=== PATIENT | male | born 1960 | race Caucasian/White ===

== ENCOUNTER → 2017-04-15 08:05 | Outpatient (CLI) | payer OTHER, SELFPAY ==
[2017-04-15 09:52] LABS: Absolute Lymphocyte Count 1.18 X10^3/ul (0.83-4.51); Absolute Neutrophil Count 3.6 X10^3/uL (2.0-7.7); Basophil# 0.01 X10^3/uL; Basophil% 0.2 % (0-1); Eosinophil# 0.03 X10^3/uL; Eosinophils% 0.6 % (0-5); Hematocrit 46.9 % (40-54); Hemoglobin 15.9 g/dl (13.0-16.5); Lymphocyte # 1.18 X10^3/ul (4.0); Lymphocyte % 21.8 % (19-41); Mean Corp Hgb Conc 33.9 g/gl (32-36); Mean Corpuscular Hgb 31.2 pg (27.0-32.0); Mean Corpuscular Volume 92.1 fL (80-94); Mean Platelet Vol. 9.8 fl (6.2-12.0); Monocyte# 0.56 X10^3/uL; Monocyte% 10.4 % (0-10); Neutrophil # 3.62 X10^3/uL (2.7-7.7); Neutrophil % 66.8 % (47-70); Platelet Count 167 K/mm3 (150-450); RBC Distribution Width CV 12.5 % (11.6-14.6); RBC Distribution Width SD 41.8 fl (35.1-43.9); Red Blood Count 5.09 M/mm3 (4.6-6.2); White Blood Count 5.4 K/mm3 (4.4-11.0)
[2017-04-15 09:53] LABS: POSITIVE COUNT NO; POSITIVE DIFFERENTIAL NO; POSITIVE MORPHOLOGY NO
[2017-04-15 10:04] LABS: Erythrocyte Sedimentation Rate 10 mm/hr (0-20)
[2017-04-15 10:11] LABS: ALB/GLOB Ratio 1.1 RATIO (0.9-2.4); AST(SGOT) 15 U/L (15-37); Alanine Aminotransfer ALT/SGPT 27 U/L (16-61); Alkaline Phosphatase 61 U/L (45-117); Anion Gap 10 (5-15); BUN 18 mg/dL (7-18); BUN/Creat Ratio 18.3 RATIO (10-20); Calcium,Total 8.4 mg/dL (8.5-10.1); Chloride 107 mmol/L (98-107); Creatinine, Serum 0.98 mg/dL (0.70-1.30); EST Glomerular Filtration Rate 83 mL/min (>60); Est Glom Filt Rate - Afr Amer 101 mL/min (>60); Globulin 3.6 g/dL (2.2-4.2); Glucose 93 mg/dL (70-110); Potassium 3.8 mmol/L (3.5-5.1); Protein, Total 7.6 g/dL (6.4-8.2); Sodium Level 141 mmol/L (136-145); Thyroid Stim Hormone (TSH) 2.68 uIU/mL (0.358-3.74)
== END ==
PROVIDERS: Visit Provider Family Medicine
DX: R53.81 Other malaise (principal); R53.83 Other fatigue
CPT/HCPCS: 36415; 80053; 84443; 85025; 85652

== ENCOUNTER → 2017-04-23 11:18 | Outpatient (CLI) | payer OTHER, SELFPAY ==
[2017-04-23 15:48] LABS: Absolute Lymphocyte Count 1.47 X10^3/ul (0.83-4.51); Absolute Neutrophil Count 6.4 X10^3/uL (2.0-7.7); Basophil# 0.05 X10^3/uL; Basophil% 0.6 % (0-1); Eosinophil# 0.03 X10^3/uL; Eosinophils% 0.3 % (0-5); Hematocrit 46.2 % (40-54); Hemoglobin 15.5 g/dl (13.0-16.5); Lymphocyte # 1.47 X10^3/ul (4.0); Lymphocyte % 16.9 % (19-41); Mean Corp Hgb Conc 33.5 g/gl (32-36); Mean Corpuscular Hgb 31.4 pg (27.0-32.0); Mean Corpuscular Volume 93.5 fL (80-94); Mean Platelet Vol. 9.8 fl (6.2-12.0); Monocyte# 0.72 X10^3/uL; Monocyte% 8.3 % (0-10); Neutrophil # 6.41 X10^3/uL (2.7-7.7); Neutrophil % 73.8 % (47-70); POSITIVE COUNT NO; POSITIVE DIFFERENTIAL NO; POSITIVE MORPHOLOGY NO; Platelet Count 239 K/mm3 (150-450); RBC Distribution Width CV 13.2 % (11.6-14.6); RBC Distribution Width SD 44.9 fl (35.1-43.9); Red Blood Count 4.94 M/mm3 (4.6-6.2); White Blood Count 8.7 K/mm3 (4.4-11.0)
[2017-04-23 16:14] LABS: ALB/GLOB Ratio 1.1 RATIO (0.9-2.4); AST(SGOT) 17 U/L (15-37); Alanine Aminotransfer ALT/SGPT 32 U/L (16-61); Alkaline Phosphatase 61 U/L (45-117); Anion Gap 7 (5-15); BUN 13 mg/dL (7-18); BUN/Creat Ratio 13.6 RATIO (10-20); Calcium,Total 8.8 mg/dL (8.5-10.1); Chloride 109 mmol/L (98-107); Creatinine, Serum 0.96 mg/dL (0.70-1.30); EST Glomerular Filtration Rate 86 mL/min (>60); Est Glom Filt Rate - Afr Amer 104 mL/min (>60); Globulin 3.6 g/dL (2.2-4.2); Glucose 87 mg/dL (74-106); Potassium 3.6 mmol/L (3.5-5.1); Protein, Total 7.6 g/dL (6.4-8.2); Sodium Level 143 mmol/L (136-145); Thyroid Stim Hormone (TSH) 1.39 uIU/mL (0.358-3.74)
== END ==
PROVIDERS: Family Provider Family Medicine; PCP Family Medicine; Visit Provider Family Medicine
DX: R19.7 Diarrhea, unspecified (principal)
CPT/HCPCS: 36415; 80053; 84443; 85025; 87177; 87209; 87493

== ENCOUNTER → 2017-05-04 10:40 | Outpatient (CLI) | payer OTHER, SELFPAY ==
--- NOTE | 2017-05-04 10:43 | ECHOD_ITS ---
Reason For Study: DYSPNEA Procedure This was a 2D Doppler, Color Flow transthoracic echocardiogram. The exam was of adequate technical quality. Exam performed in department. Left Ventricle Normal LV size. Left ventricular systolic function is normal. The estimated ejection fraction is 55 %. Transmitral doppler flow suggestive of impaired relaxation of left ventricle. No regional wall motion abnormalities noted. Right Ventricle Normal RV size. Normal systolic function. Atria Normal left atrium. Normal right atrium. No doppler evidence for ASD. Mitral Valve There is no mitral annular calcification. Normal mitral valve. Trivial mitral valve insufficiency. Tricuspid Valve Normal tricuspid valve. Trivial tricuspid valve insufficiency. Aortic Valve Trisinus/trileaflet aortic valve. Normal aortic valve. Pulmonic Valve The pulmonic valve is not well visualized. Trivial pulmonic valve insufficiency. Great Vessels Normal sized aortic root. Pericardium/Pleural No pericardial effusion. MMode/2D Measurements & Calculations LVIDd: 4.7 cm IVSd: 1.0 cm Ao root diam: 2.6 cm LVIDs: 3.1 cm LVPWd: 1.2 cm LA dimension: 3.8 cm RVDd: 4.2 cm FS: 34.8 % LAV(MOD-bp): 48.0 ml LA A4 area: 15.9 cm2 RA A4 area: 13.2 cm2 LAV(MOD-bp) Indexed: 20.7 ml/m2 LAV(MOD-sp2): 61.8 ml LAV(MOD-sp4): 38.5 ml Doppler Measurements & Calculations MV E max tarah: 69.9 cm/sec Ao V2 max: 151.1 cm/sec LV V1 max: 116.2 cm/sec MV A max tarah: 80.5 cm/sec Ao max P.1 mmHg LV V1 max P.4 mmHg MV E/A: 0.87 PA V2 max: 78.8 cm/sec Interpretation Summary Left ventricular systolic function is normal. The estimated ejection fraction is 55 %. Trivial mitral valve insufficiency. Trivial tricuspid valve insufficiency. Trivial pulmonic valve insufficiency. Transmitral doppler flow suggestive of impaired relaxation of left ventricle Ordering Physician: Ilsa Branham Referring Physician: Ilsa Branham Performed By: Comfort Flynn, EDUIN, RVT
== END ==
PROVIDERS: Family Provider Family Medicine; PCP Family Medicine; Visit Provider Family Medicine
DX: R06.09 Other forms of dyspnea (principal)
CPT/HCPCS: 93306

== ENCOUNTER 2017-09-20 08:08 | Emergency (ER) | payer OTHER, SELFPAY ==
[2017-09-20 08:10] VITALS: BP 156/89; PULSE 60; RESP 18; TEMP 36.9; O2SAT 99; BMI 33.3
--- NOTE | 2017-09-20 08:26 | CT_ITS ---
STUDY: CT ABDOMEN AND PELVIS WITHOUT CONTRAST REASON FOR EXAM: Male, 56 years old. Worsening right flank pain. RADIATION DOSAGE (If Supplied By Facility): CTDIvol = ( 18.87 ) mGy, DLP = ( 1008.95 ) mGycm TECHNIQUE: Transaxial images were obtained from the dome of the diaphragm to the symphysis pubis without oral contrast, and without intravenous contrast. Sagittal and coronal images were reconstructed. Individualized dose optimization techniques were used for this CT. COMPARISON: Comparison is made with prior study dated March 14, 2012. FINDINGS: Stable mild increased linear markings in the lingular segment of the left upper lobe suggestive of linear scarring. The visualized portions of the heart are within normal limits. There is decreased attenuation of the liver consistent with steatosis. Normal gallbladder and extrahepatic biliary system. Normal spleen. Normal pancreas. Normal bilateral adrenal glands. There is evidence of right perinephric stranding. There is engorgement of the right kidney. There is a 3.7 cm x 3.2 cm cyst in the posterior medial portion of the kidney. There is evidence of mild degree of right hydronephrosis and right hydroureter due to a 6.1 mm partially fragmented calculus at the right ureterovesical junction. Tiny nonobstructive left intrarenal calculi. Small cyst in the lower pole of the left kidney. Normal visualized stomach. Normal small intestine. There are multiple colonic diverticula consistent with diverticulosis. The appendix is visualized and appears normal. Normal abdominal aorta. Normal inferior vena cava. Normal retroperitoneum. Normal urinary bladder. There is a small umbilical hernia containing fat. Disc space narrowing and disc degeneration at the L2-L3 level. CT/Abdomen/Pelvis without Cont IMPRESSION: 6.1 mm partially fragmented calculus at the right ureterovesical junction causing mild degree of right hydronephrosis and right hydroureter. Right renal cyst. Small nonobstructive left intrarenal calculi. Small left renal cyst. Fatty infiltration of the liver. Electronically Signed: Vamsi Jauregui MD at 9:33 EDT Tel [phone], Service support ,
--- NOTE | 2017-09-20 08:29 | ED.VISSUMM ---
- ER Visit Summary Date of Service: 09/20/17 Chief Complaint: Right flank pain History of Present Illness: The patient is a 56 M who presents with right flank pain that began this morning. Patient describes pain as sharp, throbbing, and stabbing. She states the pain began suddenly. Patient states the pain radiates to his right lower abdomen. Patient states the pain improves with sitting in a reclined position. Patient does admit to some abdominal pressure but denies any pain. Patient admits to some nausea but denies any vomiting. Patient admits to some dark brown urine but denies any maura hematuria. Physical Examination: Vital signs are stable. Patient is afebrile. Patient is in no acute distress. Oral mucosa is pink and moist. Neck is supple. There is no JVD noted. Heart was regular rate and rhythm. Lungs are clear and equal bilaterally. There is good respiratory effort noted. Abdomen is soft. There is some right lower quadrant and right CVA tenderness. There is no rebound or guarding noted. Cranial nerves II through XII are intact. There are no focal motor or sensory deficits noted. The remaining physical exam is within normal limits. Test Results: CBC, basic metabolic profile, and urinalysis were obtained and were essentially within normal limits. CT scan of the abdomen and pelvis shows a 6.1 mm right ureteral calculus at the ureterovesicular junction. There is some hydronephrosis and hydroureter noted. Emergency Department Course and Treatment: Patient was given IV fluids and Toradol here. Patient states his pain has resolved. Patient was given prescriptions for Flomax and Naprosyn. Patient was instructed to follow-up with his primary care physician in 5-7 days. Patient understood and was agreeable with the plan. All questions were answered. Disposition: Discharged home Impression: Right ureteral lithiasis This note was generated with Alle[employer] dictation software. It may contain incorrect words, spelling, and punctuation that were not noted in review of the chart prior to signing ED Disposition - Plan for ED Patient: Disposition: Home or Assisted Living Chief Complaint: Flank Pain Diagnosis: Right distal ureteral calculus Instructions: ED Stone Renal W Colic Prescriptions: Naproxen [Naprosyn] 500 mg PO BID PRN #20 tab Tamsulosin HCl [Flomax] 0.4 mg PO DAILY #7 cap Referrals: Ilsa Branham MD [Primary Care Provider] -
[2017-09-20] MEDS: 0.9% Normal Saline 1,000 ML 1000 ML IV (08:33)
[2017-09-20] MEDS: Ketorolac 30 MG/ML Syringe IV (08:33)
[2017-09-20 08:35] LABS: Absolute Lymphocyte Count 1.61 X10^3/ul (0.83-4.51); Absolute Neutrophil Count 2.4 X10^3/uL (2.0-7.7); Basophil# 0.02 X10^3/uL; Basophil% 0.5 % (0-1); Eosinophil# 0.05 X10^3/uL; Eosinophils% 1.1 % (0-5); Hematocrit 47.1 % (40-54); Hemoglobin 16.8 g/dl (13.0-16.5); Lymphocyte # 1.61 X10^3/ul (4.0); Lymphocyte % 36.4 % (19-41); Mean Corp Hgb Conc 35.7 g/gl (32-36); Mean Corpuscular Hgb 32.1 pg (27.0-32.0); Mean Corpuscular Volume 90.1 fL (80-94); Mean Platelet Vol. 9.4 fl (6.2-12.0); Monocyte# 0.36 X10^3/uL; Monocyte% 8.1 % (0-10); Neutrophil # 2.37 X10^3/uL (2.7-7.7); Neutrophil % 53.7 % (47-70); POSITIVE COUNT NO; POSITIVE DIFFERENTIAL NO; POSITIVE MORPHOLOGY NO; Platelet Count 160 K/mm3 (150-450); RBC Distribution Width CV 11.9 % (11.6-14.6); RBC Distribution Width SD 39.4 fl (35.1-43.9); Red Blood Count 5.23 M/mm3 (4.6-6.2); White Blood Count 4.4 K/mm3 (4.4-11.0)
[2017-09-20 08:45] LABS: Anion Gap 9 (5-15); BUN 21 mg/dL (7-18); BUN/Creat Ratio 17.9 RATIO (10-20); Chloride 105 mmol/L (98-107); Creatinine, Serum 1.17 mg/dL (0.70-1.30); EST Glomerular Filtration Rate 68 mL/min (>60); Est Glom Filt Rate - Afr Amer 82 mL/min (>60); Estimated Creatinine Clearance 78.72 ml/min; Glucose 141 mg/dL (74-106); Potassium 4.1 mmol/L (3.5-5.1); Sodium Level 142 mmol/L (136-145)
[2017-09-20 09:28] LABS: Bacteria 0 SEEN /hpf (None Seen); Mucous, Urine 0 SEEN /hpf (<or=2+); White Blood Cells 0 SEEN /hpf (0-5)
[2017-09-20 09:34] LABS: Color, Urine Yellow (Yellow); Glucose, Dipstick Normal (Normal); Ketone-Dipstick Negative (Negative); Leukocyte Esterase-Dipstick Negative /ul (Negative); Nitrite-Dipstick Negative (Negative); Occult Blood-Urine 250 /ul (Negative); Protein-Dipstick Negative (Negative); Specific Gravity, Urine 1.015 (1.002-1.030); Urine Bilirubin Dipstick Negative (Negative); Urine Clarity Clear (Clear); Urine Urobilinogen Normal (Normal)
[2017-09-20 09:40] LABS: Red Blood Cells-Urine 0-5 SEEN /hpf (0-5); Squamous Epithelial Cells - UA 0-5 SEEN /hpf (0-5)
[2017-09-20 10:18] VITALS: BP 142/71; PULSE 62; RESP 16; O2SAT 99
== END 2017-09-20 10:20 | disposition home or self-care (01) ==
PROVIDERS: Emergency Provider Emergency Medicine; Family Provider Family Medicine; PCP Family Medicine
DX: N13.2 Hydronephrosis with renal and ureteral calculous obstruction (principal); G40.909 Epilepsy, unspecified, not intractable, without status epilepticus; Z79.899 Other long term (current) drug therapy
CPT/HCPCS: 74176; 80048; 81001; 85025; 96361; 96374; 99283; J7030; A4216

== ENCOUNTER → 2017-09-29 07:56 | Outpatient (CLI) | payer OTHER, SELFPAY ==
--- NOTE | 2017-09-29 08:04 | US_ITS ---
STUDY: RENAL ULTRASOUND - COMPLETE REASON FOR EXAM: Male, 56 years old. History of kidney stones. Patient relates history of passing kidney stone last week. TECHNIQUE: Ultrasound evaluation of the kidneys was performed with real-time and static escalera-scale imaging. COMPARISON: CT of the abdomen and pelvis, September 20, 2017. FINDINGS: RIGHT KIDNEY: Normal location of the right kidney, which is normal in size. The right kidney measures 12.5 cm. There is a normal cortex of the right kidney. The renal cortex measures 2.2 cm. Is a 3.6 x 2.9 x 3.9 cm exophytic cyst off the posterior upper pole. There are no right renal calculi. There is mild hydronephrosis of the right kidney. DISTAL RIGHT URETER: There is non-visualization of the distal right ureter. There is no demonstrated right ureterovesical junction calculus. There is a visualized right ureteral jet. LEFT KIDNEY: Normal location of the left kidney, which is mildly enlarged in size. The left kidney measures 13.0 cm. There is a normal cortex of the left kidney. The renal cortex measures 1.7 cm. There is a 1.7 x 1.1 x 0.9 cm cyst in the lower pole. There is a small 3 mm echogenic focus in the lower pole which correlates with the renal calculus seen on CT. Is a second echogenic focus in the mid kidney. No corresponding renal calculus is seen on the CT. There is no left hydronephrosis. DISTAL LEFT URETER: There is non-visualization of the distal left ureter. There is no demonstrated left ureterovesical junction calculus. There is a visualized left ureteral jet. BLADDER: The distended urinary bladder has a volume of 317 ml. The empty urinary bladder has a volume of 8 ml. There is a normal wall thickness of the distended urinary bladder. There is no demonstrated mass within the urinary bladder. There are no demonstrated bladder calculi. US/Kidney and Bladder IMPRESSION: 1. Bilateral renal cysts which correlate with the CT findings. 2. Small lower pole calculus seen in the left kidney. 3. Mild right hydronephrosis. Electronically Signed: Justin Sharma DO at 23:26 EDT Tel [phone], Service support ,
== END ==
PROVIDERS: Family Provider Family Medicine; PCP Family Medicine; Visit Provider Family Medicine
DX: N13.2 Hydronephrosis with renal and ureteral calculous obstruction (principal); N28.1 Cyst of kidney, acquired; Z87.442 Personal history of urinary calculi
CPT/HCPCS: 76770

== ENCOUNTER → 2018-03-07 10:25 | Outpatient (CLI) | payer OTHER, SELFPAY ==
[2018-03-07 12:38] LABS: Hemoglobin A1c 6.1 % (4.2-6.3)
[2018-03-07 12:47] LABS: Anion Gap 8 (5-15); BUN 19 mg/dL (7-18); BUN/Creat Ratio 20.2 RATIO (10-20); Calcium,Total 8.7 mg/dL (8.5-10.1); Chloride 104 mmol/L (98-107); Cholesterol 181 mg/dL (200); Creatinine, Serum 0.94 mg/dL (0.70-1.30); EST Glomerular Filtration Rate 88 mL/min (>60); Est Glom Filt Rate - Afr Amer 106 mL/min (>60); Glucose 103 mg/dL (74-106); High Density Lipoprotein 32 mg/dL; Sodium Level 140 mmol/L (136-145); Triglycerides 152 mg/dL; Very Low Density Lipoprotein 30 mg/dL (5-40)
[2018-03-07 13:02] LABS: Valproic Acid (Depakene) Level 50 ug/mL (50-100)
[2018-03-07 13:14] LABS: Vitamin D,25 Hydroxy 22.9 ng/mL (29.95-100.01)
== END ==
PROVIDERS: Family Provider Family Medicine; PCP Family Medicine; Visit Provider Family Medicine
DX: Z00.00 Encounter for general adult medical examination without abnormal findings (principal); E55.9 Vitamin D deficiency, unspecified; G40.909 Epilepsy, unspecified, not intractable, without status epilepticus; R73.02 Impaired glucose tolerance (oral)
CPT/HCPCS: 36415; 80048; 80061; 80164; 82306; 83036

== ENCOUNTER 2018-03-21 17:33 | Emergency (ER) | payer OTHER, SELFPAY ==
[2018-03-21 17:34] VITALS: BP 141/89; PULSE 91; RESP 16; TEMP 37; O2SAT 97; BMI 34.8
[2018-03-21 18:17] LABS: Absolute Lymphocyte Count 1.65 X10^3/ul (0.83-4.51); Absolute Neutrophil Count 6.2 X10^3/uL (2.0-7.7); Basophil# 0.02 X10^3/uL; Basophil% 0.2 % (0-1); Eosinophil# 0.02 X10^3/uL; Eosinophils% 0.2 % (0-5); Hematocrit 46.2 % (40-54); Hemoglobin 15.7 g/dl (13.0-16.5); Lymphocyte # 1.65 X10^3/ul (4.0); Lymphocyte % 19.5 % (19-41); Mean Corpuscular Volume 91.3 fL (80-94); Mean Platelet Vol. 9.8 fl (6.2-12.0); Monocyte% 7.1 % (0-10); Neutrophil # 6.16 X10^3/uL (2.7-7.7); Neutrophil % 72.9 % (47-70); Platelet Count 175 K/mm3 (150-450); RBC Distribution Width CV 12.4 % (11.6-14.6); RBC Distribution Width SD 40.7 fl (35.1-43.9); Red Blood Count 5.06 M/mm3 (4.6-6.2); White Blood Count 8.5 K/mm3 (4.4-11.0)
[2018-03-21 18:23] LABS: POSITIVE COUNT NO; POSITIVE DIFFERENTIAL NO; POSITIVE MORPHOLOGY NO
[2018-03-21 18:47] LABS: Anion Gap 9 (5-15); BUN 14 mg/dL (7-18); BUN/Creat Ratio 13.5 RATIO (10-20); Calcium,Total 8.7 mg/dL (8.5-10.1); Chloride 106 mmol/L (98-107); Creatinine, Serum 1.04 mg/dL (0.70-1.30); EST Glomerular Filtration Rate 78 mL/min (>60); Est Glom Filt Rate - Afr Amer 94 mL/min (>60); Glucose 109 mg/dL (74-106); Potassium 4.2 mmol/L (3.5-5.1); Sodium Level 137 mmol/L (136-145)
--- NOTE | 2018-03-21 20:16 | CT_ITS ---
STUDY: CT ABDOMEN AND PELVIS WITH CONTRAST REASON FOR EXAM: Male, 57 years old. Lower abdominal pain. History of diverticulitis. RADIATION DOSAGE (If Supplied By Facility): CTDIvol = ( 16.99 ) mGy, DLP = ( 1405.68 ) mGycm TECHNIQUE: Transaxial images were obtained from the dome of the diaphragm to the symphysis pubis without oral contrast. 100 ml of Isovue 300 contrast was administered. Sagittal and coronal images were reconstructed. Individualized dose optimization techniques were used for this CT. COMPARISON: September 20, 2017 FINDINGS: The visualized lung bases are unremarkable. The visualized portions of the heart are within normal limits. There is decreased attenuation of the liver consistent with steatosis. Normal gallbladder and extrahepatic biliary system. There is a benign calcified granuloma of the spleen. Normal pancreas. Normal bilateral adrenal glands. There are bilateral renal cysts. There is a nonobstructing 3.6 mm left renal calculus. Normal visualized stomach. Normal small intestine. There is diverticulosis, with thickening of the sigmoid colon wall, and pericolonic inflammation changes consistent with acute diverticulitis. The appendix is visualized and appears normal. Normal abdominal aorta. Normal inferior vena cava. Normal retroperitoneum. Normal urinary bladder. There is a small umbilical hernia containing fat. There are diffuse degenerative changes of the visualized lumbar spine. CT/Abdomen/Pelvis W IV Cont ONLY IMPRESSION: Acute diverticulitis of the sigmoid colon. Fatty infiltration of the liver. Degenerative changes. Nonobstructing 3.6 mm left renal calculus. Electronically Signed: Dagmar Carlin MD at 20:53 EST Tel , Service support ,
[2018-03-21 20:17] VITALS: BP 144/104; PULSE 77; RESP 17; O2SAT 98
[2018-03-21 20:25] VITALS: BP 144/104; PULSE 77; RESP 14; TEMP 37; O2SAT 98
--- NOTE | 2018-03-21 21:03 | ED.VISSUMM ---
- ER Visit Summary Date of Service: 03/21/18 Chief Complaint: Abdominal pain blood in stool History of Present Illness: The patient is a 57 M who states that today he is developed abdominal pain in the suprapubic left lower quadrant. He also notes some blood with the stool. He has been constipated. He has had a history of diverticulitis one time in the past who presented to very similar. That time he did not have diverticular abscess or perforation was treated with antibiotics successfully. He had a negative colonoscopy he tells me afterwards. Physical Examination: Afebrile vital signs are stable Gen: Well-nourished well-developed Head: Normocephalic atraumatic Eyes: Perrl EOMI ENT: TMs clear no rhinorrhea moist mucous membranes Neck: Supple no lymphadenopathy no JVD nontender CVS: Regular rate rhythm no murmurs normal S1-S2 Respiratory: No distress clear to auscultation bilaterally chest nontender Abdomen: Soft tenderness with guarding but without rebound the suprapubic and the left lower quadrant nondistended normal bowel sounds no masses Back: Nontender Extremity: Nontender no edema Skin: Normal color no rash Neuro: alert orientated ?3 CN II-XII intact normal strength sensation reflexes gait cerebellar Psych: Normal affect normal mood Test Results: CBC chemistries were negative. CT the abdomen pelvis demonstrated significant sigmoid diverticulitis without perforation or abscess formation Emergency Department Course and Treatment: Patient is allergic to penicillin as well as Flagyl. We will place him on Avelox monotherapy. He has declined pain medication. Early follow-up and return instructions were given and he notes understanding. Impression: 1. Acute sigmoid diverticulitis This note was generated with [employer] dictation software. It may contain incorrect words, spelling, and punctuation that were not noted in review of the chart prior to signing ED Disposition - Plan for ED Patient: Disposition: Home or Assisted Living Chief Complaint: Abd Pain Instructions: ED Diverticulitis Prescriptions: Ondansetron [Zofran Odt] 4 mg PO Q6H PRN PRN #10 tab PRN Reason: Nausea Moxifloxacin HCl [Avelox] 400 mg PO DAILY #7 tab Referrals: Ilsa Branham MD [Primary Care Provider] - 5-7 Days
[2018-03-21 21:31] VITALS: BP 160/96; PULSE 81; PULSE 82; RESP 16; TEMP 36.8; O2SAT 97
== END 2018-03-21 21:32 | disposition home or self-care (01) ==
PROVIDERS: Emergency Provider Emergency Medicine; Family Provider Family Medicine; PCP Family Medicine
DX: K57.32 Diverticulitis of large intestine without perforation or abscess without bleeding (principal)
CPT/HCPCS: 74177; 80048; 85025; 99283; Q9967; A4216

== ENCOUNTER 2018-11-15 20:57 | Emergency (ER) | payer OTHER, SELFPAY ==
[2018-11-15 20:57] VITALS: BP 165/83; PULSE 56; RESP 16; TEMP 36.8; O2SAT 98; BMI 33.5
[2018-11-15 21:11] LABS: Bacteria 0 SEEN /hpf (None Seen); Squamous Epithelial Cells - UA 0 SEEN /hpf (0-5); White Blood Cells 0 SEEN /hpf (0-5)
[2018-11-15 21:16] LABS: Color, Urine Yellow (Yellow); Glucose, Dipstick Normal (Normal); Ketone-Dipstick 5 mg/dl (Negative); Leukocyte Esterase-Dipstick Negative /ul (Negative); Nitrite-Dipstick Negative (Negative); Occult Blood-Urine 250 /ul (Negative); Protein-Dipstick 30 mg/dl (Negative); Specific Gravity, Urine 1.025 (1.002-1.030); Urine Bilirubin Dipstick Negative (Negative); Urine Clarity Sl. Cloudy (Clear); Urine Urobilinogen Normal (Normal)
[2018-11-15 21:24] LABS: Mucous, Urine 2+ /hpf (<or=2+); Red Blood Cells-Urine 10-25 SEEN /hpf (0-5)
--- NOTE | 2018-11-15 22:06 | CT_ITS ---
HISTORY:LT FLANK PAIN,HEMATURIAHX:DIABETES,DIVERTICULITIS,KIDNEY STONES,SEIZURES TECHNIQUE:CT Abdomen And Pelvis W/O Contrast Axial CT images were obtained of the abdomen and pelvis without oral or IV contrast. Multiplanar rectructions were also obtained. A radiation dose optimization technique was used for this scan. # of images including paperwork:[id number] COMPARISON: March 21, 2018 FINDINGS: LUNG BASES: Atelectasis or scarring in the anterior aspect of the left lower lobe. This was seen on the prior study and is similar in their is atelectasis seen posteriorly in the left lower lobe LIVER T BILIARY TRACT: Diffuse hepatic steatosis. No discrete masses. This was seen on the prior study GALLBLADDER:No cholelithiasis PANCREAS: Unremarkable. SPLEEN: Unremarkable for an unenhanced study ADRENAL GLANDS: Unremarkable. KIDNEYS/URETERS:Minimal perinephric stranding is seen surrounding the right kidney. This may be secondary to prior infection or inflammation. This was present on the prior study. Right renal cyst was seen on the prior study. There is increased fat stranding surrounding the left kidney. There is mild to moderate left-sided hydronephrosis and hydroureter. This involves the proximal ureter. A 2.2 mm stone is seen within the proximal left ureter seen on axial image 104 series 2 and on coronal image 66 series 601. The ureter beyond this is not distended. BLADDER: Poorly distended STOMACH, SMALL AND LARGE BOWEL: Stomach is unremarkable as is the small bowel No mechanical obstruction Diverticulosis without evidence of diverticulitis APPENDIX: No appendicitis. ASCITES: Unremarkable. FREE AIR: Unremarkable. PELVIS: Unremarkable. AORTA: Unremarkable. LYMPH NODES: Unremarkable. OSSEOUS STRUCTURES: No acute osseous abnormality there is spina bifida occulta at S1 similar to prior study CT/Abdomen/Pelvis without Cont IMPRESSION: Mild/moderate left-sided hydronephrosis. There is a 2.2 mm stone seen within the proximal left ureter. Hepatic steatosis Diverticulosis without evidence of diverticulitis Individualized dose optimization techniques were used for this CT. at [id number] Reported and signed by: Leonarda Braun DO Electronically Signed: Leonarda Braun DO at 22:43 EDT Tel , Service support ,
[2018-11-15] MEDS: Ondansetron 4 MG/2 ML Vial IV (22:15)
[2018-11-15] MEDS: 0.9% Normal Saline 1,000 ML 999 ML IV (22:15)
[2018-11-15] MEDS: Ketorolac 30 MG/ML Syringe IV (22:15)
[2018-11-15 23:00] VITALS: BP 158/64; PULSE 68; RESP 16; O2SAT 97
--- NOTE | 2018-11-15 23:42 | DCINST.ED_ITS ---
ED Disposition - Plan for ED Patient: Instructions: KIDNEY STONE w/ Colic Referrals: Ilsa Branham MD [Primary Care Provider] - Nelson Sims MD [STAFF PHYSICIAN] -
--- NOTE | 2018-11-15 23:42 | ED.DEP ---
ED Disposition - Plan for ED Patient: Instructions: KIDNEY STONE w/ Colic Referrals: lIsa Branham MD [Primary Care Provider] - Nelson Sims MD [STAFF PHYSICIAN] -
--- NOTE | 2018-11-15 23:44 | ED.VISSUMM ---
- ER Visit Summary Date of Service: 11/15/18 Chief Complaint: Left flank pain . History of Present Illness: The patient is a 58 M presenting with left flank pain. Patient states this started tonight. He has history of kidney stones and this feels similar. He has nausea with no vomiting. Denies fever. He also has a history of diverticulitis. He denies other complaints. Physical Examination: Vitals are stable. Patient is afebrile. Alert no acute distress. HEENT exam is unremarkable. Neck is supple. Lungs are clear and equal bilaterally. Heart is regular rate and rhythm. Abdomen is soft left lower quadrant tenderness with no rebound or guarding Back: Left CVA tenderness Extremities are unremarkable. Skin is warm and dry. No rash Remainder of exam is unremarkable. Emergency Department Course and Treatment: Patient declined narcotic pain medication. He was given Toradol, IV fluids, Zofran. Urinalysis shows 0 white cells, 10-[address] flank shows mild/moderate left-sided hydronephrosis. There is a 2.2 mm stone seen within the proximal left ureter. Hepatic steatosis. Diverticulosis without evidence of diverticulitis. On reevaluation, patient is feeling much improved. He is given Dr. Sims for follow-up. Advised to return to the ED for worsening complaints. Disposition: Discharge home Impression: Urolithiasis This note was generated with atokore dictation software. It may contain incorrect words, spelling, and punctuation that were not noted in review of the chart prior to signing ED Disposition - Plan for ED Patient: Instructions: KIDNEY STONE w/ Colic Referrals: Ilsa Branham MD [Primary Care Provider] - Nelson Sims MD [STAFF PHYSICIAN] -
[2018-11-16] VITALS: BP 148/80; PULSE 69; RESP 16; O2SAT 97
== END 2018-11-16 00:01 | disposition home or self-care (01) ==
PROVIDERS: Emergency Provider Emergency Medicine; Family Provider Family Medicine; PCP Family Medicine
DX: N13.2 Hydronephrosis with renal and ureteral calculous obstruction (principal)
CPT/HCPCS: 74176; 81001; 96361; 96374; 96375; 99284; J7030; A4216; J2405

== ENCOUNTER → 2019-07-05 16:29 | Outpatient (CLI) | payer OTHER, SELFPAY ==
[2019-07-05 18:05] LABS: Anion Gap 6 (5-15); BUN 18 mg/dL (7-18); BUN/Creat Ratio 17.8 RATIO (10-20); Calcium,Total 8.9 mg/dL (8.5-10.1); Chloride 105 mmol/L (98-107); Creatinine, Serum 1.01 mg/dL (0.70-1.30); EST Glomerular Filtration Rate 80 mL/min (>60); Est Glom Filt Rate - Afr Amer 97 mL/min (>60); Glucose 83 mg/dL (74-106); Potassium 3.8 mmol/L (3.5-5.1); Sodium Level 137 mmol/L (136-145); Valproic Acid (Depakene) Level 39 ug/mL (50-100)
[2019-07-05 18:13] LABS: Hemoglobin A1c 6.2 % (4.2-6.3)
== END ==
PROVIDERS: PCP Family Medicine; Referring Provider Family Medicine; Visit Provider Family Medicine
DX: G40.909 Epilepsy, unspecified, not intractable, without status epilepticus (principal); R73.02 Impaired glucose tolerance (oral)
CPT/HCPCS: 36415; 80048; 80164; 83036

== ENCOUNTER → 2020-07-05 15:01 | Outpatient (CLI) | payer OTHER, SELFPAY ==
[2020-07-05 18:04] LABS: Vitamin D,25 Hydroxy 34.1 ng/mL
[2020-07-05 18:08] LABS: PSA,Total - Annual Screen 0.32 ng/mL (0.00-4.00)
[2020-07-05 18:43] LABS: Valproic Acid (Depakene) Level 51 ug/mL (50-100)
== END ==
PROVIDERS: PCP Family Medicine; Visit Provider Family Medicine
DX: Z00.00 Encounter for general adult medical examination without abnormal findings (principal); E55.9 Vitamin D deficiency, unspecified
CPT/HCPCS: 36415; 80164; 82306; 84153; G0103

== ENCOUNTER → 2021-01-07 16:44 | Outpatient (CLI) | payer OTHER, SELFPAY | PROVIDERS: PCP Family Medicine; Referring Provider Family Medicine; Visit Provider Family Medicine | DX: Z20.822 Contact with and (suspected) exposure to COVID-19 (principal) | CPT/HCPCS: 87635; U0005; U0003 ==

== ENCOUNTER → 2021-07-11 | Outpatient (CLI) | payer OTHER, SELFPAY ==
[2021-07-11 17:56] LABS: Hemoglobin A1c 5.8 % (3.8-5.6)
[2021-07-11 18:12] LABS: Valproic Acid (Depakene) Level 47 ug/mL (50-100)
[2021-07-11 18:15] LABS: PSA,Total - Annual Screen 0.48 ng/mL (0.00-4.00)
== END | disposition home or self-care (01) ==
LOC: MFPLAB 16:36
PROVIDERS: PCP Family Medicine; Referring Provider Family Medicine; Visit Provider Family Medicine
DX: Z00.00 Encounter for general adult medical examination without abnormal findings (principal); R73.02 Impaired glucose tolerance (oral)
CPT/HCPCS: 36415; 80164; 83036; 84153; G0103

== ENCOUNTER → 2021-10-13 | Outpatient (CLI) | payer OTHER, SELFPAY ==
[2021-10-13 16:19] LABS: Mucous, Urine 0 SEEN /hpf (<or=2+)
[2021-10-13 17:48] LABS: Absolute Neutrophil Count 2.6 X10^3/uL (2.0-7.7); Basophil# 0.02 X10^3/uL; Basophil% 0.4 % (0-1); Eosinophil# 0.01 X10^3/uL; Eosinophils% 0.2 % (0-5); Hematocrit 46.7 % (40-54); Hemoglobin 15.9 g/dL (13.0-16.5); Lymphocyte % 40.9 % (19-41); Mean Corpuscular Hgb 31.7 pg (27.0-32.0); Mean Platelet Vol. 9.8 fl (6.2-12.0); Monocyte# 0.29 X10^3/uL; Monocyte% 5.9 % (0-10); NRBC Flagged by Analyzer 0 % (0-5); Neutrophil # 2.55 X10^3/uL (2.7-7.7); Neutrophil % 52.2 % (47-70); Platelet Count 171 K/mm3 (150-450); RBC Distribution Width CV 11.9 % (11.6-14.6); RBC Distribution Width SD 40.2 fl (35.1-43.9); Red Blood Count 5.02 M/mm3 (4.6-6.2); White Blood Count 4.9 K/mm3 (4.4-11.0)
[2021-10-13 18:13] LABS: Color, Urine Yellow (Yellow); Glucose, Dipstick Normal (Normal); Ketone-Dipstick 5 mg/dl (Negative); Leukocyte Esterase-Dipstick 25 /ul (Negative); Nitrite-Dipstick Negative (Negative); Occult Blood-Urine 250 /ul (Negative); Protein-Dipstick 30 mg/dl (Negative); Specific Gravity, Urine 1.025 (1.002-1.030); Urine Bilirubin Dipstick Negative (Negative); Urine Clarity Clear (Clear); Urine Urobilinogen Normal (Normal)
[2021-10-13 18:14] LABS: Erythrocyte Sedimentation Rate 3 mm/hr (0-20); Lymphocyte 4.9 % (19-41)
[2021-10-13 18:17] LABS: ALB/GLOB Ratio 1.2 RATIO (0.9-2.4); AST(SGOT) 15 U/L (15-37); Alanine Aminotransfer ALT/SGPT 30 U/L (16-61); Alkaline Phosphatase 47 U/L (45-117); Anion Gap 3 (5-15); BUN 16 mg/dL (7-18); BUN/Creat Ratio 15.1 RATIO (10-20); Calcium,Total 9.1 mg/dL (8.5-10.1); Chloride 109 mmol/L (98-107); Creatinine, Serum 1.06 mg/dL (0.70-1.30); EST Glomerular Filtration Rate 75 mL/min (>60); Est Glom Filt Rate - Afr Amer 91 mL/min (>60); Globulin 3.2 g/dL (2.2-4.2); Glucose 132 mg/dL (74-106); Potassium 4.4 mmol/L (3.5-5.1); Protein, Total 7.2 g/dL (6.4-8.2); Sodium Level 140 mmol/L (136-145)
[2021-10-13 19:31] LABS: Red Blood Cells-Urine > 100 SEEN /hpf (0-5); White Blood Cells 0-5 SEEN /hpf (0-5)
[2021-10-13 19:32] LABS: Bacteria 1+ /hpf (None Seen); Squamous Epithelial Cells - UA 0-5 SEEN /hpf (0-5)
== END | disposition home or self-care (01) ==
LOC: MFPLAB 16:17
PROVIDERS: PCP Family Medicine; Visit Provider Family Medicine
DX: R31.9 Hematuria, unspecified (principal)
CPT/HCPCS: 36415; 80053; 81001; 85025; 85652; 87086

== ENCOUNTER → 2021-11-07 | Outpatient (CLI) | payer OTHER, SELFPAY ==
--- NOTE | 2021-11-07 17:20 | CT_ITS ---
STUDY: CT ABDOMEN AND PELVIS WITHOUT CONTRAST REASON FOR EXAM: Male, 61 years old. HEMATURIA RADIATION DOSAGE (If Supplied By Facility): CTDIvol = ( 19.18 ) mGy, DLP = ( 1026.36 ) mGycm TECHNIQUE: Transaxial images were obtained from the dome of the diaphragm to the symphysis pubis without oral contrast, and without intravenous contrast. Sagittal and coronal images were reconstructed. Individualized dose optimization techniques were used for this CT. COMPARISON: 11/15/2018 FINDINGS: The visualized lung bases are unremarkable. The visualized portions of the heart are within normal limits. There is decreased attenuation of the liver consistent with steatosis. Normal gallbladder and extrahepatic biliary system. Normal spleen. Normal pancreas. Normal bilateral adrenal glands. 5 cm exophytic cyst in the upper pole the right kidney. Another 5 cm cyst in the midsection of the right kidney. 3 mm nonobstructing stone at the right ureterovesical junction. Normal left kidney. Normal visualized stomach. Normal small intestine. There are multiple colonic diverticula consistent with diverticulosis. The appendix is visualized and appears normal. Normal abdominal aorta. Normal inferior vena cava. Normal retroperitoneum. Normal urinary bladder. Normal abdominal wall. Mild levoscoliosis of the lumbar spine with degenerative disc disease. CT/Abdomen/Pelvis without Cont IMPRESSION: 3 mm nonobstructing stone at the right ureterovesical junction. Electronically Signed: Quinn Archer MD at 23:37 EDT ,
== END | disposition home or self-care (01) ==
PROVIDERS: PCP Family Medicine; Referring Provider Urology; Visit Provider Urology
DX: R31.21 Asymptomatic microscopic hematuria (principal)
CPT/HCPCS: 74176

== ENCOUNTER → 2022-07-13 | Outpatient (CLI) | payer OTHER, SELFPAY ==
[2022-07-13 18:13] LABS: Valproic Acid (Depakene) Level 61 ug/mL (50-100)
[2022-07-13 18:19] LABS: Hemoglobin A1c 5.9 % (3.8-5.6)
[2022-07-13 18:34] LABS: Anion Gap 8 (5-15); BUN 16 mg/dL (7-18); BUN/Creat Ratio 15.5 RATIO (10-20); Calcium,Total 9.7 mg/dL (8.5-10.1); Chloride 106 mmol/L (98-107); Creatinine, Serum 1.03 mg/dL (0.70-1.30); EST Glomerular Filtration Rate 78 mL/min (>60); Est Glom Filt Rate - Afr Amer 94 mL/min (>60); Glucose 91 mg/dL (74-106); PSA,Total- Diagnostic 0.53 ng/mL (0.0-4.0); Potassium 3.9 mmol/L (3.5-5.1); Sodium Level 141 mmol/L (136-145)
== END | disposition home or self-care (01) ==
LOC: MFPLAB 16:00
PROVIDERS: PCP Family Medicine; Visit Provider Family Medicine
DX: Z00.00 Encounter for general adult medical examination without abnormal findings (principal); G40.909 Epilepsy, unspecified, not intractable, without status epilepticus; R73.02 Impaired glucose tolerance (oral)
CPT/HCPCS: 36415; 80048; 80164; 83036; 84153

== ENCOUNTER 2022-09-08 11:43 | Emergency (ER) | payer OTHER, SELFPAY ==
[2022-09-08 11:44] VITALS: BP 171/89; PULSE 68; RESP 17; TEMP 36.4; O2SAT 100; BMI 32.4
--- NOTE | 2022-09-08 12:42 | EKG12_ITS ---
Test Reason : CP Blood Pressure : / mmHG Vent. Rate : 070 BPM Atrial Rate : 070 BPM P-R Int : 154 ms QRS Dur : 088 ms QT Int : 398 ms P-R-T Axes : 062 045 027 degrees QTc Int : 429 ms Normal sinus rhythm Normal ECG Confirmed by ALVERTO SEPULVEDA MD ([id number]), newspaper photo editor PHYLLIS MENCHACA ([id number]) on 09/09/2022 10:03:46 AM Referred By: LIGIA Confirmed By:ALVERTO SEPULVEDA MD
[2022-09-08 12:49] VITALS: O2SAT 97
[2022-09-08] MEDS: Aspirin 81 MG TAB.CHEW 324 MG PO (12:50)
--- NOTE | 2022-09-08 12:50 | RAD_ITS ---
INDICATION: Chest pain EXAMINATION/TECHNIQUE: X-RAY - XR Chest 1 View COMPARISON: No prior examinations are available for comparison. FINDINGS: LINES/DEVICES: None. LUNGS: No consolidation, edema or effusion. No pneumothorax. Probable small granuloma in the right upper lobe. MEDIASTINUM AND CARDIOVASCULAR STRUCTURES: Cardiac silhouette not enlarged. Central airways and mediastinal contour are unremarkable. BONES AND SOFT TISSUES: Unremarkable. RAD/Chest 1 View (Portable) IMPRESSION: No radiographic evidence of acute cardiopulmonary disease. Electronically Signed: Ke Davidson MD at 13:17 EDT ,
[2022-09-08 13:00] LABS: Absolute Lymphocyte Count 1.62 X10^3/uL (0.83-4.51); Absolute Neutrophil Count 2.2 X10^3/uL (2.0-7.7); Basophil# 0.02 X10^3/uL; Basophil% 0.4 % (0-1); Eosinophil# 0.04 X10^3/uL; Eosinophils% 0.9 % (0-5); Hematocrit 48.5 % (40-54); Hemoglobin 16.7 g/dL (13.0-16.5); Lymphocyte # 1.62 X10^3/ul (0.83-4.51); Lymphocyte % 35.4 % (19-41); Mean Corp Hgb Conc 34.4 g/dL (32-36); Mean Corpuscular Hgb 31.1 pg (27.0-32.0); Mean Corpuscular Volume 90.3 fL (80-94); Mean Platelet Vol. 9.1 fl (6.2-12.0); Monocyte# 0.67 X10^3/uL; Monocyte% 14.7 % (0-10); NRBC Flagged by Analyzer 0 % (0-5); Neutrophil % 48.2 % (47-70); Platelet Count 240 K/mm3 (150-450); RBC Distribution Width CV 11.3 % (11.6-14.6); RBC Distribution Width SD 37.2 fl (35.1-43.9); Red Blood Count 5.37 M/mm3 (4.6-6.2); White Blood Count 4.6 K/mm3 (4.4-11.0)
[2022-09-08 13:10] VITALS: BP 137/89; PULSE 65; RESP 15; O2SAT 97
[2022-09-08 13:13] LABS: Anion Gap 7 (5-15); BUN 21 mg/dL (7-18); BUN/Creat Ratio 17.5 RATIO (10-20); Calcium,Total 9.7 mg/dL (8.5-10.1); Chloride 105 mmol/L (98-107); EST Glomerular Filtration Rate 65 mL/min (>60); Est Glom Filt Rate - Afr Amer 79 mL/min (>60); Estimated Creatinine Clearance 72.13 ml/min; Glucose 109 mg/dL (74-106); Potassium 3.8 mmol/L (3.5-5.1); Sodium Level 134 mmol/L (136-145); Troponin-I HS (w/2H Reflex) 4 pg/mL (3.0-78.0)
[2022-09-08 13:18] LABS: Valproic Acid (Depakene) Level 52 ug/mL (50-100)
[2022-09-08 13:21] LABS: D-Dimer Quantitative (DVT/PE) 0.55 FEU/ug/m (0.27-0.49)
--- NOTE | 2022-09-08 14:06 | ED.VIS.CHEST ---
HPI History of Present Illness Chief Complaint: Chest Pain Informant: patient Onset/Context/Timing Onset: Today and Hours (1) Activity at onset: sudden Timing: Intermittent Quality: Positive for Sharp (Like a pinprick) Location: Right Chest Worsened By: Nothing Relieved By: Nothing Associated Symptoms: Positive for Diaphoresis, Dyspnea and Lightheadedness; Negative for Nausea, Vomiting, Cough, Fever, Acid Reflux or Palpitations Narrative Narrative: Patient presents with chest pain that began approxi-1 hour prior to arrival. Patient states it is on the right side of his chest. Patient states it is intermittent and feels like a pinprick in his chest. Patient states he started having some tingling in his left hand after this. Patient states he had an episode of confusion after this as well. Patient states he had difficulty recalling names of people that he knows very well. Patient states nothing makes his symptoms worse and nothing makes them better. Patient admits to some mild shortness of breath. Patient denies any nausea or vomiting. Patient admits to some diaphoresis. But states he has been having sweats for the past week. Patient also admits to some lightheadedness but denies any syncopal episodes. CVD Risk Factors: Positive for Diabetes (Prediabetes) and Family History 1' </=55; Negative for Hypertension, Hypercholesterolemia or Smoking PE Risk Factors: Negative for Recent Travel/Surgery, Recent Immobilization, Prior DVT or PE, Cancer or OCP + Smoking + >/=35 [facility] Medical History (Updated 09/08/22 @ 16:[address] Nicola Rashid, DO) Prediabetes Seizure disorder Home Medications divalproex 250 mg tablet,delayed release 250 mg PO BIDCM 09/20/17 [History Last Taken 03/21/18] metformin 500 mg tablet 500 mg PO DAILY 09/20/17 [History Last Taken 03/21/18] moxifloxacin 400 mg tablet 400 mg PO DAILY #7 tabs 03/21/18 [Rx Last Taken Unknown] ondansetron 4 mg disintegrating tablet 4 mg PO Q6H PRN PRN Nausea #10 tabs 03/21/18 [Rx Last Taken Unknown] Allergy/AdvReac Type Severity Reaction Status Date / Time ampicillin Allergy Rash Verified 03/21/18 17:38 Penicillins Allergy Rash Verified 03/21/18 17:38 Surgical History no surgical history no surgical history Social History Smoking Status: Never smoker ROS ROS ED Constitutional Constitutional ED: Denies chills or fever(s) Eyes Eyes: Reports blurry vision; Denies change in vision ENT ENT ED: Denies rhinorrhea or sore throat Cardiovascular Cardiovascular: Reports chest pain; Denies palpitations Respiratory/Chest Respiratory/Chest: Reports dyspnea; Denies cough Gastrointestinal Gastrointestinal: Denies abdominal pain, nausea or vomiting Genitourinary Genitourinary ED: Reports urinary frequency; Denies dysuria or hematuria Musculoskeletal Musculoskeletal: Reports myalgias and neck pain; Denies back pain Integumentary Denies abscess or rash Neurologic Neurologic: Reports headache(s); Denies weakness Allergic/Immunologic Allergic/Immunologic ED: Denies mouth swelling or urticaria EXAM Physical Exam Const Vital Signs: 09/08/22 11:44 09/08/22 12:49 09/08/22 13:10 Temperature 97.5 F L Temperature Source Temporal Pulse Rate 68 65 Respiratory Rate 17 15 Blood Pressure 171/89 H 137/89 H Blood Pressure Mean 116 105 Pulse Ox 100 97 97 Oxygen Delivery Method Room Air Room Air 09/08/22 14:38 09/08/22 15:09 Temperature Temperature Source Pulse Rate 75 62 Respiratory Rate 18 15 Blood Pressure Blood Pressure Mean Pulse Ox 97 98 Oxygen Delivery Method Room Air Positive well nourished, well developed and obese General Appearance ED: well developed and NAD Nutritional Appearance: obese HEENT normocephalic and atraumatic Eyes PERRL and EOMs intact bilaterally Neck supple and no JVD Chest Wall palpation of chest normal Resp normal respiratory effort and clear to auscultation bilaterally Effort and Inspection: Negative for respiratory distress Cardio regular rate, regular rhythm and no murmurs GI normal to inspection, nondistended, normoactive bowel sounds, soft to palpation, non-tender and non-distended Extremity normal to inspection General Extremety ED: Negative for edema or tenderness General Extremity: Negative for edema Neuro oriented x3, CN's II-XII intact bilaterally and no sensory deficits noted Sensorium / Orientation: awake and alert Motor Exam: strength 5/5 throughout Psych mental status grossly normal Heart Score History: Slightly/Non-Suspicious ECG: Normal Age: >45 - <65 years Risk Factors: 1 or 2 Risk Factors Troponin: </= Normal Limit Score: 2 MDM MDM MDM Narrative Medical decision making narrative: Differential diagnosis includes cardiac dysrhythmia, cardiac ischemia, pulmonary embolism, pneumonia, pneumothorax, electrolyte abnormality, anxiety, musculoskeletal pain, and Depakote toxicity. EKG will be obtained to assess for cardiac dysrhythmia and cardiac ischemia. Chest x-ray will be obtained to assess for pneumonia and pneumothorax. CBC will be obtained to assess for leukocytosis and anemia. Basic metabolic profile will be obtained to assess for electrolyte abnormality and renal function. High-sensitivity troponin will be obtained to assess for cardiac ischemia. D-dimer will be obtained to assess for pulmonary embolism. 2-hour repeat high-sensitivity troponin will be obtained to assess for ongoing cardiac ischemia. Depakote level will be obtained to assess for Depakote toxicity. Lab Data Attestation: I reviewed the patient's lab results. Lab results narrative: CBC was reviewed and was within normal limits. Basic metabolic profile was reviewed and was essentially within normal limits. High-sensitivity troponin was reviewed and was normal at 4. D-dimer was reviewed and was normal for his age at 0.55. Depakote level was reviewed and was normal at 52. 2-hour repeat sensitivity troponin was reviewed and was normal at 4. Labs: Laboratory Results - last 24 hr 09/08/22 09/08/22 09/08/22 12:04 12:04 12:04 WBC 4.6 RBC 5.37 Hgb 16.7 H Hct 48.5 MCV 90.3 MCH 31.1 MCHC 34.4 RDW Std Deviation 37.2 RDW Coeff of Sadi 11.3 L Plt Count 240 MPV 9.1 Immature Gran % (Auto) 0.400 Neut % (Auto) 48.2 Lymph % (Auto) 35.4 Merrick % (Auto) 14.7 H Eos % (Auto) 0.9 Baso % (Auto) 0.4 Absolute Neuts (auto) 2.2 Absolute Lymphs (auto) 1.62 Nucleated RBC % 0 D-Dimer Quant (PE/DVT) 0.55 H* Sodium 134 L Potassium 3.8 Chloride 105 Carbon Dioxide 22.0 Anion Gap 7 BUN 21 H Creatinine 1.20 Estim Creat Clear Calc 72.13 Est GFR (MDRD) Af Amer 79 Est GFR (MDRD) Non-Af 65 BUN/Creatinine Ratio 17.5 Glucose 109 H Calcium 9.7 Troponin I High Sens 4 Valproic Acid 09/08/22 09/08/22 09/08/22 12:04 14:29 15:21 WBC RBC Hgb Hct MCV MCH MCHC RDW Std Deviation RDW Coeff of Sadi Plt Count MPV Immature Gran % (Auto) Neut % (Auto) Lymph % (Auto) Merrick % (Auto) Eos % (Auto) Baso % (Auto) Absolute Neuts (auto) Absolute Lymphs (auto) Nucleated RBC % D-Dimer Quant (PE/DVT) Sodium Potassium Chloride Carbon Dioxide Anion Gap BUN Creatinine Estim Creat Clear Calc Est GFR (MDRD) Af Amer Est GFR (MDRD) Non-Af BUN/Creatinine Ratio Glucose Calcium Troponin I High Sens Cancelled 4 Valproic Acid 52 Radiography Diagnostic Testing: Clinical Impression(s) from Imaging Studies Chest X-Ray 09/08/22 12:50 IMPRESSION: No radiographic evidence of acute cardiopulmonary disease. Electronically Signed: Ke Davidson MD at 13:17 EDT , Portable 1 view chest x-ray was obtained. On my independent interpretation, lung pedersen are clear. There is normal cardiac silhouette. Bony thorax is normal. There is no acute process noted. Radiologist also interpreted the x-ray and agrees. EKG Initial EKG: Attestation: I personally reviewed and interpreted this EKG as follows: Interpretation: Sinus Rhythm (70) and No Acute Injury Pattern Comments: EKG was obtained. On my independent interpretation, it showed a normal sinus rhythm with a rate of 70. LA interval, QRS interval, and QTc intervals were all normal. Tamiment was normal. There are no acute ST or T wave changes. Prior EKG tracings: not available for review Prior: No Prior Treatment and Re-Evaluation :: Patient was given aspirin here. Patient had no further chest pain here in the emergency department. Patient was advised of his findings. Patient has a HEART score of 2. Patient was advised that this is low risk for acute cardiac event. Patient was instructed to follow-up with his primary care physician as scheduled. Patient was instructed return if worse in any way. Patient understood and was agreeable with the plan. All questions were answered. Discharge Plan Triage Chief Complaint: Chest Pain ED Provider: Nicola Rashid Dx/Rx/DC Orders Clinical Impression: Chest pain, Fatigue, Myalgia Instructions: ED Chest Pain, Uncertain Cause Prescriptions: No Action metformin 500 MG tablet 500 mg PO DAILY Label Comments: TAKE ONE TABLET BY MOUTH EVERY NIGHT AT BEDTIME divalproex 250 MG tablet 250 mg PO BIDCM moxifloxacin 400 MG tablet 400 mg PO DAILY Qty: 7 0RF ondansetron 4 MG tablet 4 mg PO Q6H PRN PRN (Reason: Nausea) Qty: 10 0RF Primary Care Provider: Ilsa Branham Referrals: Ilsa Branham MD [Primary Care Provider] - [facility] appointment Disposition Disposition: Home, Self Care
[2022-09-08 14:38] VITALS: PULSE 75; RESP 18; O2SAT 97
[2022-09-08 14:52] LABS: Reflex Troponin-HS? (from REC) Y
[2022-09-08 15:09] VITALS: PULSE 62; RESP 15; O2SAT 98
--- NOTE | 2022-09-08 15:10 | NURSING ---
PER LAB, NEED A NEW GREEN TOP
[2022-09-08 15:58] LABS: Troponin-I HS 4 pg/mL (3.0-78.0)
== END 2022-09-08 16:29 | disposition home or self-care (01) ==
PROVIDERS: Emergency Provider Emergency Medicine; PCP Family Medicine; Visit Provider Emergency Medicine
DX: R07.9 Chest pain, unspecified (principal); R53.83 Other fatigue; M79.10 Myalgia, unspecified site; E66.9 Obesity, unspecified
CPT/HCPCS: 71045; 80048; 80164; 84484; 85025; 85379; 93005; 99283; A4216

== ENCOUNTER → 2022-09-10 | Outpatient (CLI) | payer OTHER, SELFPAY ==
[2022-09-10 16:08] LABS: Internal QC Validated? YES +Cl - CLEAR BKGD; Monotest Negative (Negative)
[2022-09-12 05:07] LABS: CMV Acute Antibody IgM < 30.0 AU/mL (0.0-29.9); CMV Antibody IgG < 0.60 U/mL (0.00-0.59)
== END | disposition home or self-care (01) ==
PROVIDERS: PCP Family Medicine; Visit Provider Family Medicine
DX: R53.83 Other fatigue (principal)
CPT/HCPCS: 36415; 86308; 86644; 86645

== ENCOUNTER → 2022-11-27 | Outpatient (CLI) | payer OTHER, SELFPAY ==
[2022-11-27 10:47] LABS: Anion Gap 6 (5-15); BUN 18 mg/dL (7-18); Calcium,Total 8.8 mg/dL (8.5-10.1); Chloride 110 mmol/L (98-107); Creatinine, Serum 0.95 mg/dL (0.70-1.30); EST Glomerular Filtration Rate 85 mL/min (>60); Est Glom Filt Rate - Afr Amer 103 mL/min (>60); Glucose 116 mg/dL (74-106); Potassium 3.9 mmol/L (3.5-5.1); Sodium Level 140 mmol/L (136-145)
== END | disposition home or self-care (01) ==
LOC: MTLAB 07:34
PROVIDERS: PCP Family Medicine; Referring Provider Nurse Practitioner Family; Visit Provider Nurse Practitioner Family
DX: R35.0 Frequency of micturition (principal)
CPT/HCPCS: 36415; 80048

== ENCOUNTER 2024-06-09 16:11 | Emergency (ER) | payer BC, SELFPAY ==
[2024-06-09 16:12] VITALS: BP 124/80; PULSE 63; RESP 18; TEMP 36.1; O2SAT 98; BMI 33.8
--- NOTE | 2024-06-09 17:33 | CT_ITS ---
EXAM: BRAIN/HEAD WITHOUT CONTRAST CLINICAL HISTORY: 63-year-old male, fall 4 days ago, headache. History of seizures. RADIATION DOSE SUMMARY: CTDlvol: 50 mGy DLP: 1000 mGycm COMPARISON: None. TECHNIQUE: Routine CT imaging of the head without IV contrast. Additional multiplanar reformats were obtained. Dose reduction techniques were used including intermediate exposure control (AEC),iterative reconstruction technique, and/or mA and/or KV dose adjustments based on patient's size. FINDINGS: The ventricles, sulci and cisterns are age-appropriate. Minimal scattered supratentorial white matter hypodensities. The kaplan-white matter interfaces are otherwise maintained. No acute intracranial hemorrhage. There is no midline shift, mass effect, or extra-axial collection. The orbits, visualized paranasal sinuses and mastoids are unremarkable. No acute calvarial fracture or scalp hematoma. CT/Brain/Head without Contrast IMPRESSION: No acute intracranial finding. Reading Location: [id number]
--- NOTE | 2024-06-09 17:33 | CT_ITS ---
PROCEDURE: SINUS/FACIAL BONE REASON FOR EXAM: 63-year-old male, fall 4 days ago, headache. History of seizures. TECHNIQUE: CT of the paranasal sinuses without contrast. Coronal and Sagittal reconstruction series were provided. One or more dose reduction techniques were used (e.g., Automated exposure control, adjustment of the mA and/or kV according to patient size, use of iterative reconstruction technique). COMPARISON: Same-day CT head. FINDINGS: Bones: No acute osseous fracture. No suspicious osseous lesion. Arthrosis of the atlantoaxial joint. Prior dental restorations with scattered periapical lucencies. Soft tissues: No cutaneous or subcutaneous hematoma. Visualized intracranial structures: See same day CT head. Lymph nodes: No suspicious lymphadenopathy. Glands: The visualized salivary glands are unremarkable. CT/Sinus/Facial Bone IMPRESSION: Unremarkable CT of the sinus/facial bones. Reading Location: [id number]
--- NOTE | 2024-06-09 17:35 | EDS_ITS ---
HPI <Iliana Gross RN - Last Filed: 06/09/24 18:53> History of Present Illness Chief Complaint: Head Injury Informant: patient Onset/Context/Timing Onset: Days (3) Mechanism/Context: Slip (Slipped in shower) Quality of Pain: Aching and - (Pressure) Location: Right cheek Current Severity: 2/10 Maximum Severity: 4/10 Worsened by: Nothing Associated Symptoms Associated Symptoms: Negative for Parasthesias, Weakness, Loss of function, Inability to ambulate or Loss of consciousness Narrative Narrative: Patient is a 63-year-old male with past medical history significant for prediabetes and a seizure disorder with last known seizure approximately 25 to 30 years ago. Patient presents to the ED ambulatory at the request of PCP. Patient reports falling 3 days prior to arrival hitting his right cheek on the side of a bathtub. Patient reports he was on vacation, showering, noticed the tub was slippery. He slipped and fell hitting his right cheek on the side of the bathtub. Denies LOC. Denies blood thinners. Patient reports headache at the site of injury, intermittently to the top of his head, and to the maxillary sinus area since time of injury. He reports taking Aleve on the first day. He has not taken anything for pain since. Patient does report dizziness and feeling wobbly, no blurred or double vision, needing to focus more when doing work, light sensitivity beginning within the last 24 hours, mild intermittent nausea. Patient does report he has been working from home for the past few days involving computer work. reports steady gait. Patient also reports that he feels as if he has been battling a sinus infection for the past month. Patient denies fever, recent illness, neck pain, cough, chest pain, vomiting and diarrhea. Prior similar symptoms: No Recent Illness/Hospitalization: No PFSH <Iliana Gross RN - Last Filed: 06/09/24 18:53> PFSH Medical History Prediabetes Seizure disorder Home Medications ?Medication ?Instructions ?Recorded ?Last Taken ?Type divalproex 250 mg tablet,delayed 250 mg PO BIDCM 09/2003/21/18 History release metformin 500 mg tablet 500 mg PO DAILY 09/20/1709/30 History moxifloxacin 400 mg tablet 400 mg PO DAILY #7 tabs 09/30 Unknown Rx ondansetron 4 mg disintegrating 4 mg PO Q6H PRN PRN Na usea #10 tabs 03/21/18 Unknown Rx tablet Allergy/AdvReac Type Severity Reaction Status Date / Time ampicillin Allergy Rash Verified 06/09/24 16:12 Penicillins Allergy Rash Verified 06/09/24 16:12 Social History Smoking Status: Never smoker ROS <Iliana Gross RN - Last Filed: 06/09/24 18:53> ROS ED ROS Narrative Patient reports dizziness. Describes as being wobbly. Constitutional Constitutional ED: Denies chills, fever(s) or weight loss Eyes Eyes: Reports other Details: Photosensitivity ; Denies blurry vision ENT ENT ED: Reports other Details: Maxillary sinus pressure ; Denies ear pain, rhinorrhea or sore throat Cardiovascular Cardiovascular: Denies chest pain or palpitations Respiratory/Chest Respiratory/Chest: Denies cough or dyspnea Gastrointestinal Gastrointestinal: Reports nausea; Denies abdominal pain, constipation, diarrhea, melena or vomiting Musculoskeletal Musculoskeletal: Denies arthralgias, back pain or neck pain Neurologic Neurologic: Reports headache(s); Denies paresthesias or weakness Psychiatric Psychiatric: Denies anxiety or depression EXAM <Iliana Gross RN - Last Filed: 06/09/24 18:53> Physical Exam Narrative Exam Narrative: Patient sitting in chair in the ED room. sitting beside patient. Patient awake, alert, well-kept, well-nourished. No acute distress. Const Vital Signs: 06/09/24 16:12 06/09/24 18:11 06/09/24 18:34 Temperature 97 F L Temperature Source Temporal Pulse Rate 63 70 Respiratory Rate 18 15 Respiratory Effort Normal Respiratory Depth Normal Respiratory Pattern Normal Blood Pressure 124/80 H 129/81 H Blood Pressure Mean 94 97 Pulse Ox 98 97 Oxygen Delivery Method Room Air Room Air Room Air 06/09/24 18:53 Temperature 98 F Temperature Source Pulse Rate 70 Respiratory Rate 15 Respiratory Effort Respiratory Depth Respiratory Pattern Blood Pressure 129/81 H Blood Pressure Mean 97 Pulse Ox 97 Oxygen Delivery Method Positive well nourished and well developed General Appearance ED: well developed and NAD HEENT HEENT Narrative: Head normocephalic, atraumatic. Pain with palpation to bilateral maxillary sinuses. Mild tenderness to rt zygomatic bone. atraumatic Eyes PERRL and EOMs intact bilaterally Neck full ROM Lymph Lymphatic Narrative: No lymphadenopathy noted. Chest Wall inspection of chest normal and palpation of chest normal Resp normal respiratory effort and clear to auscultation bilaterally Auscultation: Negative for rales, rhonchi or wheezes Cardio regular rhythm, S1 normal heart sound, S2 normal heart sound and no murmurs GI normal to inspection, nondistended, normoactive bowel sounds, non-tender and non-distended Back/Spine normal to inspection and no thoracic nor lumbar tenderness Extremity normal to inspection and full ROM General Extremety ED: Negative for edema or tenderness General Extremity: Negative for edema Neuro oriented x3, CN's II-XII intact bilaterally, moves all extremities, no focal motor deficits, no sensory deficits noted and gait normal Kechi Coma Scale: document GCS findings Spontaneous Obeys Commands Oriented 15 Sensorium / Orientation: alert, oriented to person, oriented to place, oriented to time and orientation impaired Motor Exam: strength 5/5 throughout Psych mental status grossly normal and thought process normal Skin no rashes or lesions noted, no wounds, skin turgor normal and no jaundice <Dr. Raghav Winn MD - Last Filed: 06/09/24 23:57> Physical Exam Const Vital Signs: 06/09/24 16:12 06/09/24 18:11 06/09/24 18:34 Temperature 97 F L Temperature Source Temporal Pulse Rate 63 70 Respiratory Rate 18 15 Respiratory Effort Normal Respiratory Depth Normal Respiratory Pattern Normal Blood Pressure 124/80 H 129/81 H Blood Pressure Mean 94 97 Pulse Ox 98 97 Oxygen Delivery Method Room Air Room Air Room Air 06/09/24 18:53 Temperature 98 F Temperature Source Pulse Rate 70 Respiratory Rate 15 Respiratory Effort Respiratory Depth Respiratory Pattern Blood Pressure 129/81 H Blood Pressure Mean 97 Pulse Ox 97 Oxygen Delivery Method Neuro Ranulfo Coma Scale: document GCS findings 15 MDM <Iliana Gross RN - Last Filed: 06/09/24 18:53> MDM MDM Narrative Medical decision making narrative: Given patient's recent fall with continued headache, CT of the brain without contrast and CT facial bones was ordered to rule out cerebral hemorrhage and/or facial fractures. I have personally performed a face to face assessment of the patient and have reviewed the DARIA Note. I performed a substantive portion of the visit including all aspects of the following. My gates findings include: History is [63-year-old male was in [place] slipped in the bathtub struck the right side of his face by his zygomatic arch 4 days ago. No LOC. No blood thinners. Since that time he has had headaches and pain in the right side of his face. Saw his primary care physician today wanting to get a CAT scan. When he went to CAT scan at [facility] they said his insurance denied it. Same to the ER.] Exam is [well-appearing 63-year-old male. Vital signs stable afebrile. H EENT exam pupils round react light. Extra motions are intact. He has mild tenderness to his right zygomatic arch. No bruising. Dentition intact. Scalp nontender. No hematoma. Neck nontender. Trachea midline. Back and spine nontender. Lungs clear. Heart regular rhythm rate about 60 no murmur. Chest wall ribs nontender. Abdomen soft nontender. Moving all 4 extremities. Neurologically. He is awake and alert. Answer questions following commands. GCS 15.] Medical Decision Making [63-year-old male fell and struck his head 4 days ago. Having postconcussion symptoms. CAT scan of be obtained to rule out a facial bone fracture and/or brain injury.] Other additions or changes: [None] History & Record Review Discussion w/independent historian: Patient and Significant other Radiography Diagnostic Testing: Clinical Impression(s) from Imaging Studies Brain CT 06/09/24 17:33 IMPRESSION: No acute intracranial finding. Reading Location: [facility] Facial/Sinus 06/09/24 17:33 IMPRESSION: Unremarkable CT of the sinus/facial bones. Reading Location: [facility] Differential Diagnosis Differential Diagnosis: Cerebral hemorrhage Differential Diagnosis: Sinusitis Differential Diagnosis: Zygomatic fracture Management Discussion w/another healthcare provider: Other (Dr. Winn, ED provider) Treatment and Re-Evaluation Narrative: CT brain and facial bones reviewed and read by radiology. No intracranial process or facial fractures noted. Upon reevaluation, patient sitting in chair denies complaints at this time. Discussed closed head injury, concussion, facial contusion with patient and . Both agreeable with plan and agreeable to be discharged home. <Dr. Raghav Winn MD - Last Filed: 06/09/24 23:57> [facility] Narrative Medical decision making narrative: Given patient's recent fall with continued headache, CT of the brain without contrast and CT facial bones was ordered to rule out cerebral hemorrhage and/or facial fractures I have personally performed a face to face assessment of the patient and have reviewed the DARIA Note. I performed a substantive portion of the visit including all aspects of the following. My gates findings include: History is [63-year-old male was in [place] slipped in the bathtub struck the right side of his face by his zygomatic arch 4 days ago. No LOC. No blood thinners. Since that time he has had headaches and pain in the right side of his face. Saw his primary care physician today wanting to get a CAT scan. When he went to CAT scan at [facility] they said his insurance denied it. Same to the ER.] Exam is [well-appearing 63-year-old male. Vital signs stable afebrile. H EENT exam pupils round react light. Extra motions are intact. He has mild tenderness to his right zygomatic arch. No bruising. Dentition intact. Scalp nontender. No hematoma. Neck nontender. Trachea midline. Back and spine nontender. Lungs clear. Heart regular rhythm rate about 60 no murmur. Chest wall ribs nontender. Abdomen soft nontender. Moving all 4 extremities. Neurologically. He is awake and alert. Answer questions following commands. GCS 15.] Medical Decision Making [63-year-old male fell and struck his head 4 days ago. Having postconcussion symptoms. CAT scan of be obtained to rule out a facial bone fracture and/or brain injury.] Other additions or changes: [None] Radiography Diagnostic Testing: Clinical Impression(s) from Imaging Studies Brain CT 06/09/24 17:33 IMPRESSION: No acute intracranial finding. Reading Location: [facility] Facial/Sinus 06/09/24 17:33 IMPRESSION: Unremarkable CT of the sinus/facial bones. Reading Location: [facility] Discharge Plan Triage Chief Complaint: Head Injury ED Provider: Raghav Winn Dx/Rx/DC Orders Clinical Impression: Fall, Closed head injury, Contusion of face, Concussion Instructions: ED Concussion Prescriptions: No Action metformin 500 MG tablet 500 mg PO DAILY Patient Comments: TAKE ONE TABLET BY MOUTH EVERY NIGHT AT BEDTIME divalproex 250 MG tablet 250 mg PO BIDCM moxifloxacin 400 MG tablet 400 mg PO DAILY Qty: 7 0RF ondansetron 4 MG tablet 4 mg PO Q6H PRN PRN (Reason: Nausea) Qty: 10 0RF Primary Care Provider: Ilsa Branham Referrals: Ilsa Branham MD [Primary Care Provider] - As Needed Activity Restrictions/Additional Instructions: Ice to your cheek. That will decrease pain and swelling. Motrin for pain and inflammation and Tylenol for pain. Print Language: Danish Disposition Disposition: Home, Self Care Discharge Date/Time: 06/09/24 18:54
[2024-06-09 18:11] VITALS: BP 129/81; PULSE 70; RESP 15; O2SAT 97
[2024-06-09 18:53] VITALS: BP 129/81; PULSE 70; RESP 15; TEMP 36.6; O2SAT 97
== END 2024-06-09 18:54 | disposition home or self-care (01) ==
PROVIDERS: Emergency Provider Emergency Medicine; PCP Family Medicine; Visit Provider Emergency Medicine
DX: S06.0X0A Concussion without loss of consciousness, initial encounter (principal); W18.2XXA Fall in (into) shower or empty bathtub, initial encounter
CPT/HCPCS: 70450; 70486; 99282